=== PATIENT | male | born 1945 | race Caucasian/White ===

== ENCOUNTER 2020-01-23 09:30 | Outpatient (CLI) | payer MEDICARE, BC ==
--- NOTE | 2020-01-23 12:05 | ULT ---
ULTRASOUND ABDOMINAL AORTA: Date: 01/23/2020 HISTORY: Wellness exam. Screening for abdominal aortic aneurysm. COMPARISON: 01/05/2017. FINDINGS: The abdominal aortic measurements are as follows: Proximal: 1.8 x 2.7 x 2.4 cm Mid: 1.7 x 2.3 x 1.6 cm Distal: 2.7 (AP) x 3.3 (transverse) x 2.6 (CC) cm The right common iliac artery measures 1.3 x 0.9 cm. The left common iliac artery measures 1.0 x 0.8 cm. 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 POS: OFF
== END 2020-01-23 09:31 | disposition home or self-care (01) ==
LOC: BICULT 09:30
PROVIDERS: ATTEND Family Medicine
DX: Z00.00 Encounter for general adult medical examination without abnormal findings (principal); Z13.6 Encounter for screening for cardiovascular disorders
CPT/HCPCS: 76775

== ENCOUNTER 2021-12-02 09:59 | Outpatient (CLI) | payer MEDICARE, BC ==
[2021-12-02 11:55] LABS: #Eosinphils 0.1 10x3/uL (0.0-0.5); #Monocytes 0.7 10x3/uL (0.0-1.1); #Neutrophils 6.8 10x3/uL (1.5-8.4); %Basophils 0.3 % (0.0-2.0); %Eosinophils 1.3 % (0.0-6.0); %Monocytes 7.2 % (0.0-10.0); %Neutrophils 71.8 % (40.0-75.0); Hemoglobin 15.2 g/dL (13.5-17.5); Mean Corpuscular HGB CONC 34.2 g/dL (32.0-36.0); Mean Corpuscular Hemoglobin 31.7 pg (27.0-33.0); Mean Corpuscular Volume 92.7 fl (81.2-95.1); Mean Platelet Volume 9.3 fl (7.4-10.4); Platelet Count 220 10x3/uL (150-450); RBC Distribution Width 13.1 % (11.5-14.5); Red Blood Cell (RBC) Count 4.79 10x6/uL (4.32-5.72); White Blood Cell (WBC) Count 9.4 10x3/uL (3.5-10.5)
[2021-12-02 11:59] LABS: Prothrombin Time 10.9 sec (9.5-12.1)
[2021-12-02 12:04] LABS: Anion Gap 15 mmol/L (10-20); BUN (Urea Nitrogen) 15 mg/dL (8.4-25.7); Calc. Creatinine Clearance 0 mL/min (70-130); Calcium 8.7 mg/dL (7.8-10.44); Carbon Dioxide 22 mmol/L (23-31); Chloride 107 mmol/L (98-107); Glucose 104 mg/dL (83-110); Potassium 4.6 mmol/L (3.5-5.1); Sodium 139 mmol/L (136-145)
[2021-12-02 20:43] LABS: SARS-CoV-2 PCR by NAA Not Detected (NotDetected)
== END 2021-12-02 10:00 | disposition home or self-care (01) ==
LOC: LABBT 09:59
PROVIDERS: ATTEND Orthopaedic Surgery
DX: Z01.818 Encounter for other preprocedural examination (principal); M17.11 Unilateral primary osteoarthritis, right knee; Z20.822 Contact with and (suspected) exposure to COVID-19
CPT/HCPCS: 80048; 85025; 85610; 87081; 93005; U0003; U0005; 93010

== ENCOUNTER 2021-12-02 10:00 | Inpatient (IN) | payer MEDICARE, BC ==
[2021-12-07] MEDS ORDERED: Tranexamic Acid 1,000 MG/10 ML VIAL ONE ×2 (06:11→09:27)
[2021-12-07] MEDS ORDERED: Sodium Chloride 0.9% 100 ML ONE (06:11)
[2021-12-07] MEDS ORDERED: Vancomycin 1.5 GRAM/300 ML BAG 1.5 GM in Premix Bag 1 BAG IVPB SCH ×2 (06:15→19:15)
[2021-12-07] MEDS ORDERED: Bupivacaine PF 0.5% 30 ML VIAL ONE (06:35)
[2021-12-07] MEDS ORDERED: Fentanyl 100 MCG/2 ML VIAL ONE ×5 (06:48→10:16)
[2021-12-07] MEDS ORDERED: Midazolam HCl 2 mg/2 ml Vial ONE (07:05)
[2021-12-07] MEDS ORDERED: Sodium Chloride 0.9% 10 ML ONE (07:05)
[2021-12-07] MEDS ORDERED: methylPREDNISolone Acetate 40 mg/ml Vial ONE (07:12)
[2021-12-07] MEDS ORDERED: Lidocaine 1% (PF) 30 ML VIAL ONE (07:13)
[2021-12-07] MEDS ORDERED: Bupivacaine 0.25% 10 ML VIAL ONE (07:15)
[2021-12-07] MEDS ORDERED: EPINEPHrine 1 MG/ML AMP ONE (07:15)
[2021-12-07] MEDS ORDERED: ceFAZolin 2 GM/DEX 5% 100 ML BAG ONE (07:21)
[2021-12-07] MEDS ORDERED: cefOXitin Sodium/Dextrose 2 GM/50 ML BAG ONE (07:21)
[2021-12-07] MEDS ORDERED: ceFAZolin 2 GM/Dextrose 50 ML IVPB ONE (07:21)
[2021-12-07] MEDS ORDERED: ePHEDrine 50 MG/ML VIAL ONE (07:30)
[2021-12-07] MEDS ORDERED: PROPOFOL 200 MG/20 ML VIAL ONE (07:30)
[2021-12-07] MEDS ORDERED: Lidocaine 1% PF 5 ML VIAL ONE (07:30)
[2021-12-07] MEDS ORDERED: Bupivacaine HCl 0.5%/Epinephrine 1:200,000/PF 30 ml Vial ONE (07:30)
[2021-12-07] MEDS ORDERED: Glycopyrrolate 0.2 MG/ML 5 ML SYRINGE ONE (07:30)
[2021-12-07] MEDS ORDERED: Ondansetron PF 4 MG/2 ML Vial ONE (07:30)
[2021-12-07] MEDS ORDERED: PHENYLEPHRINE-NS 100 MCG/ML 10 ML SYRINGE ONE (07:30)
[2021-12-07] MEDS ORDERED: Fentanyl 100 MCG/2 ML VIAL IV PRN (07:47)
[2021-12-07] MEDS ORDERED: Promethazine HCl 25 MG/ML VIAL IM PRN ×3 (08:00→15:06)
[2021-12-07] MEDS ORDERED: traMADol HCl 50 MG TAB PO PRN (08:00)
[2021-12-07] MEDS ORDERED: HYDROcodone/Acetaminophen 10/325 mg Tablet PO PRN ×2 (08:00)
[2021-12-07] MEDS ORDERED: Ropivacaine 0.2% 550 ML 550 ML NERVE BLCK SCH (08:00)
[2021-12-07] MEDS ORDERED: Ondansetron PF 4 MG/2 ML Vial IVP PRN ×2 (08:00→15:06)
[2021-12-07] MEDS ORDERED: Zolpidem Tartrate 5 MG TAB PO PRN ×2 (08:00→15:06)
[2021-12-07] MEDS ORDERED: Ondansetron HCl/PF 4 MG/2 ML Vial IVP PRN (09:21)
[2021-12-07] MEDS ORDERED: Promethazine HCl 25 MG/ML VIAL IVPB PRN (09:21)
[2021-12-07] MEDS ORDERED: hydrALAZINE 20 MG/ML VIAL ONE (10:03)
[2021-12-07] MEDS ORDERED: Ketorolac Tromethamine 30 MG/ML VIAL ONE (10:16)
[2021-12-07] MEDS ORDERED: diphenhydrAMINE 25 MG CAP PO PRN (15:06)
[2021-12-07] MEDS ORDERED: Acetaminophen 325 MG TAB PO PRN (15:06)
[2021-12-07 15:10] VITALS: BMI 25.8
[2021-12-07] MEDS ORDERED: Senokot S 8.6-50 MG TAB PO SCH (16:15)
[2021-12-07] MEDS ORDERED: Aspirin 81 mg Enteric Coated Tablet PO SCH (16:15)
[2021-12-07] MEDS ORDERED: Ferrous Gluconate 324 MG TAB PO SCH (16:15)
[2021-12-07] MEDS ORDERED: Multivitamin W/ Minerals 1 TAB PO SCH (16:15)
[2021-12-07] MEDS: Ketorolac Tromethamine 30 MG/ML VIAL IVP SCH ×3 (16:50→22:20)
[2021-12-07] MEDS: Sodium Chloride 0.9% 1,000 ML IV SCH ×2 (16:51→17:29)
[2021-12-07] MEDS: ceFAZolin 2 GM/Dextrose 50 ML 2 GM in Premix Bag 1 BAG IVPB SCH (17:29)
[2021-12-07] MEDS: Ferrous Gluconate 324 MG TAB PO SCH (22:18)
[2021-12-07] MEDS: Senokot S 8.6-50 MG TAB PO SCH (22:19)
[2021-12-07] MEDS: Aspirin 81 mg Enteric Coated Tablet PO SCH (22:19)
[2021-12-08] MEDS: ceFAZolin 2 GM/Dextrose 50 ML 2 GM in Premix Bag 1 BAG IVPB SCH (00:32)
[2021-12-08] MEDS: Ketorolac Tromethamine 30 MG/ML VIAL IVP SCH ×3 (05:40→18:15)
[2021-12-08 08:43] LABS: Mean Corpuscular HGB CONC 32.8 g/dL (32.0-36.0); Mean Corpuscular Hemoglobin 32.3 pg (27.0-31.0); Mean Corpuscular Volume 98.6 fL (78.0-98.0); Mean Platelet Volume 6.9 fL (7.4-10.4); Platelet Count 202 thou/uL (130-400); RBC Distribution Width 12.3 % (11.5-14.5); Red Blood Cell (RBC) Count 4.34 mill/uL (4.70-6.10); White Blood Cell (WBC) Count 13.3 thou/uL (4.8-10.8)
[2021-12-08] MEDS: Senokot S 8.6-50 MG TAB PO SCH ×2 (09:31→22:41)
[2021-12-08] MEDS: Aspirin 81 mg Enteric Coated Tablet PO SCH ×2 (09:32→22:41)
[2021-12-08] MEDS: traMADol HCl 50 MG TAB PO PRN ×2 (09:32→15:53)
[2021-12-08] MEDS: Multivitamin W/ Minerals 1 TAB PO SCH (09:32)
[2021-12-08] MEDS: Ferrous Gluconate 324 MG TAB PO SCH ×2 (09:32→22:41)
[2021-12-08] MEDS: Sodium Chloride 0.9% 1,000 ML IV SCH (11:43)
[2021-12-08] MEDS ORDERED: SILDENAFIL CITRATE 50 MG PO PRN (12:45)
[2021-12-08] MEDS ORDERED: Amlodipine 5 MG TAB PO SCH (17:45)
[2021-12-08] MEDS: Vit A,C & E/Lutein/Minerals Tablet PO SCH (22:41)
[2021-12-08] MEDS: Carvedilol 25 MG TAB PO SCH (22:46)
[2021-12-09] MEDS: Sodium Chloride 0.9% 1,000 ML IV SCH (00:52)
[2021-12-09] MEDS: Ketorolac Tromethamine 30 MG/ML VIAL IVP SCH ×2 (00:55→06:05)
[2021-12-09 05:23] LABS: Mean Corpuscular HGB CONC 33.1 g/dL (32.0-36.0); Mean Corpuscular Hemoglobin 32.3 pg (27.0-31.0); Mean Corpuscular Volume 97.5 fL (78.0-98.0); Platelet Count 164 thou/uL (130-400); RBC Distribution Width 12.2 % (11.5-14.5); Red Blood Cell (RBC) Count 3.71 mill/uL (4.70-6.10); White Blood Cell (WBC) Count 10.8 thou/uL (4.8-10.8)
[2021-12-09] MEDS: Ferrous Gluconate 324 MG TAB PO SCH (08:27)
[2021-12-09] MEDS: Carvedilol 25 MG TAB PO SCH (08:27)
[2021-12-09] MEDS: Aspirin 81 mg Enteric Coated Tablet PO SCH (08:27)
[2021-12-09] MEDS: Senokot S 8.6-50 MG TAB PO SCH (08:27)
[2021-12-09] MEDS: Vit A,C & E/Lutein/Minerals Tablet PO SCH (08:27)
[2021-12-09] MEDS: traMADol HCl 50 MG TAB PO PRN (08:28)
[2021-12-09] MEDS: Multivitamin W/ Minerals 1 TAB PO SCH (08:28)
[2021-12-09] MEDS ORDERED: Atorvastatin Calcium 10 MG TAB PO SCH (09:00)
[2021-12-09] MEDS ORDERED: Amlodipine 5 MG TAB PO SCH (11:00)
[2021-12-09 12:11] VITALS: TEMP 98.1
[2021-12-09 12:13] VITALS: BP 190/81
== END 2021-12-09 14:45 | disposition home health service (06) | DRG 470 ==
LOC: SURG A 12-07 05:35 → EDSTATUS 12-07 10:00 → SURG B 12-07 15:15
PROVIDERS: ADMIT Orthopaedic Surgery; ATTEND Orthopaedic Surgery
PROC: 0SRC0J9 Replacement of Right Knee Joint with Synthetic Substitute, Cemented, Open Approach (ICD-10-PCS; principal; 2021-12-07)
PROC: 3E0U33Z Introduction of Anti-inflammatory into Joints, Percutaneous Approach (ICD-10-PCS; 2021-12-07)
PROC: 3E0U3BZ Introduction of Anesthetic Agent into Joints, Percutaneous Approach (ICD-10-PCS; 2021-12-07)
DX: M17.0 Bilateral primary osteoarthritis of knee (principal); Z20.822 Contact with and (suspected) exposure to COVID-19; E78.5 Hyperlipidemia, unspecified; K22.70 Barrett's esophagus without dysplasia; J30.2 Other seasonal allergic rhinitis; E66.9 Obesity, unspecified; Z87.891 Personal history of nicotine dependence; I25.2 Old myocardial infarction; Z95.1 Presence of aortocoronary bypass graft; Z68.28 Body mass index [BMI] 28.0-28.9, adult; Z79.899 Other long term (current) drug therapy
CPT/HCPCS: 36415; 85027; A4306; C1713; C1776; J0171; J0360; J0690; J0694; J1885; J2001; J2250; J2405; J2704; J2795; J2920; J3010; J3370; J3490; J7050; S0020

== ENCOUNTER 2023-02-08 12:52 | Outpatient (CLI) | payer MEDICARE, BC ==
[2023-02-08 14:13] LABS: #Eosinphils 0.1 10x3/uL (0.0-0.5); #Monocytes 0.6 10x3/uL (0.0-1.1); #Neutrophils 6.4 10x3/uL (1.5-8.4); %Basophils 0.3 % (0.0-2.0); %Lymphocytes 22.4 % (18.0-47.0); %Monocytes 6.1 % (0.0-10.0); %Neutrophils 69.8 % (40.0-75.0); Hemoglobin 14.7 g/dL (13.5-17.5); Mean Corpuscular HGB CONC 32.7 g/dL (32.0-36.0); Mean Corpuscular Hemoglobin 31.4 pg (27.0-33.0); Mean Corpuscular Volume 95.9 fl (81.2-95.1); Mean Platelet Volume 9.4 fl (7.4-10.4); Platelet Count 231 10x3/uL (150-450); RBC Distribution Width 13.1 % (11.5-14.5); Red Blood Cell (RBC) Count 4.68 10x6/uL (4.32-5.72); White Blood Cell (WBC) Count 9.2 10x3/uL (3.5-10.5)
[2023-02-08 14:26] LABS: INR-International Normal Ratio 0.9; Prothrombin Time 10.2 sec (9.5-12.1)
[2023-02-08 15:25] LABS: Anion Gap 16 mmol/L (10-20); BUN (Urea Nitrogen) 20 mg/dL (8.4-25.7); Calc. Creatinine Clearance 0 mL/min (70-130); Calcium 8.9 mg/dL (7.8-10.44); Carbon Dioxide 20 mmol/L (23-31); Chloride 109 mmol/L (98-107); Estimated GFR 88; Glucose 103 mg/dL (83-110); Potassium 4.5 mmol/L (3.5-5.1); Sodium 140 mmol/L (136-145)
== END 2023-02-08 12:53 | disposition home or self-care (01) ==
LOC: LABBT 12:52
PROVIDERS: ATTEND Orthopaedic Surgery
DX: Z01.818 Encounter for other preprocedural examination (principal); M17.12 Unilateral primary osteoarthritis, left knee
CPT/HCPCS: 80048; 85025; 85610; 87081; 93005; 93010

== ENCOUNTER 2023-12-12 06:13 | Day surgery (SDC) | payer MEDICARE, BC ==
[2023-12-04 10:41] VITALS: BMI 31.7
[2023-12-12] MEDS ORDERED: LevoFLOXacin D5W 500 mg (100 mL) BAG ONE (06:24)
[2023-12-12] MEDS ORDERED: Sodium Chloride 0.9% 100 ML ONE (06:25)
[2023-12-12] MEDS ORDERED: cefTRIAXone (ROCEPHIN) 2 GM VIAL ONE (06:25)
[2023-12-12] MEDS ORDERED: fentaNYL 50 mcg/mL 1 mL Vial ONE (06:49)
[2023-12-12] MEDS ORDERED: PROPOFOL 20 ML ONE (06:49)
[2023-12-12] MEDS ORDERED: ePHEDrine Sulfate 50 MG/10 ML VIAL ONE (07:44)
[2023-12-12] MEDS ORDERED: Ondansetron PF 4 MG/2 ML Vial ONE (07:49)
[2023-12-12] MEDS ORDERED: Phenazopyridine HCl 100 MG TAB ONE (08:41)
[2023-12-12] MEDS ORDERED: Oxybutynin 5 MG TAB ONE (08:41)
[2023-12-12] MEDS ORDERED: Tamsulosin HCl 0.4 MG CAP ONE (08:53)
== END 2023-12-12 11:00 | disposition home or self-care (01) ==
LOC: SDC 06:13
PROVIDERS: ATTEND Urology
PROC: 0TJB8ZZ Inspection of Bladder, Via Natural or Artificial Opening Endoscopic (ICD-10-PCS; principal; 2023-12-12)
PROC: 0VB03ZX Excision of Prostate, Percutaneous Approach, Diagnostic (ICD-10-PCS; 2023-12-12)
DX: C61 Malignant neoplasm of prostate (principal); N40.0 Benign prostatic hyperplasia without lower urinary tract symptoms
CPT/HCPCS: 55700; J3010; C1747; G0416; J0696; J1956; J2405; J2704; J3490

== ENCOUNTER 2024-02-21 14:02 | Outpatient (CLI) | payer MEDICARE | END 2024-02-21 14:03 | disposition home or self-care (01) | LOC: BICMAMMO 14:02 | PROVIDERS: ATTEND Internal Medicine Hematology & Oncology | DX: Z13.820 Encounter for screening for osteoporosis (principal); Z79.818 Long term (current) use of other agents affecting estrogen receptors and estrogen levels | CPT/HCPCS: 77080 ==

== ENCOUNTER 2024-05-19 16:12 | Inpatient (IN) | payer MEDICARE ==
[2024-05-19] MEDS ORDERED: HYDROcodone/Acetaminophen 5/325 mg Tablet ONE (19:38)
[2024-05-19] MEDS ORDERED: TETANUS, DIPHTHERIA TOX,ADULT (TDVAX) 0.5 ML VIAL IM ONE (20:34)
[2024-05-19] MEDS ORDERED: Glucagon 1 MG/ML KIT IM PRN (20:34)
[2024-05-19] MEDS ORDERED: Dextrose 50% Abboject 50 ML SYRINGE SLOW IVP PRN (20:34)
[2024-05-19] MEDS ORDERED: Dextrose 5% in Water 1,000 ML IV PRN (20:34)
[2024-05-19] MEDS ORDERED: Promethazine HCl 25 MG/ML VIAL IM PRN (20:35)
[2024-05-19] MEDS ORDERED: Ondansetron PF 4 MG/2 ML Vial IVP PRN (20:35)
[2024-05-19] MEDS ORDERED: Losartan 25 MG TAB ONE (20:37)
[2024-05-19] MEDS ORDERED: Carvedilol 6.25 MG TAB ONE (20:37)
[2024-05-19] MEDS ORDERED: Rib Fracture Protocol PO SCH (20:45)
[2024-05-19 20:47] LABS: #Basophils 0.03 10x3/uL (0.0-0.2); %Basophils 0.3 % (0.0-1.0); %Eosinophils 1.4 % (0.0-10.0); %Monocytes 5.9 % (0.0-10.0); %Neutrophils 78.5 % (42.0-75.0); Hemoglobin 13.5 g/dL (14.0-18.0); Mean Corpuscular HGB CONC 32.9 g/dL (32.0-36.0); Mean Corpuscular Hemoglobin 33.8 pg (27.0-31.0); Mean Corpuscular Volume 102.8 fL (78.0-98.0); Mean Platelet Volume 8.7 fL (7.4-10.4); Platelet Count 226 10x3/uL (130-400); RBC Distribution Width 13.5 % (11.5-14.5); Red Blood Cell (RBC) Count 3.99 mill/uL (4.70-6.10)
[2024-05-19] MEDS ORDERED: Cyclobenzaprine 10 MG TAB PO PRN (21:00)
[2024-05-19 21:06] LABS: ALT (SGPT) 21 U/L (8-55); AST (SGOT) 16 U/L (5-34); Albumin 3.8 g/dL (3.4-4.8); Alkaline Phosphatase 90 U/L (40-110); Anion Gap 19 mmol/L (10-20); BUN (Urea Nitrogen) 22 mg/dL (8.4-25.7); Bilirubin, Total 0.8 mg/dL (0.2-1.2); Calc. Creatinine Clearance 0 mL/min (70-130); Calcium 9.6 mg/dL (7.8-10.44); Carbon Dioxide 22 mmol/L (23-31); Chloride 104 mmol/L (98-107); Estimated GFR 77; Globulin 2.9 g/dL (2.4-3.5); Glucose 114 mg/dL (83-110); Protein, Total 6.7 g/dL (5.8-8.1); Sodium 141 mmol/L (136-145)
[2024-05-19 21:10] LABS: Troponin I Less than 0.010 ng/mL (< 0.028)
[2024-05-19 23:29] VITALS: BMI 32.5
[2024-05-20] MEDS: Atorvastatin Calcium 10 MG TAB PO SCH (00:25)
[2024-05-20] MEDS: Carvedilol 6.25 MG TAB PO SCH (00:25)
[2024-05-20] MEDS: Gabapentin 100 MG CAP PO SCH (00:26)
[2024-05-20] MEDS: Losartan 25 MG TAB PO SCH (00:26)
[2024-05-20] MEDS: Famotidine 20 MG TAB PO SCH (00:26)
[2024-05-20] MEDS: Ibuprofen 200 MG TAB PO SCH (00:27)
[2024-05-20] MEDS: Tamsulosin HCl 0.4 MG CAP PO SCH (00:27)
[2024-05-20] MEDS: Acetaminophen 500 MG TAB PO SCH (00:48)
[2024-05-20] MEDS: traMADol HCl 50 MG TAB PO SCH (00:49)
[2024-05-20 05:36] LABS: #Basophils Less than 0.03 10x3/uL (0.0-0.2); %Basophils 0.3 % (0.0-1.0); %Eosinophils 2.2 % (0.0-10.0); %Lymphocytes 12.2 % (21.0-51.0); %Monocytes 8.1 % (0.0-10.0); %Neutrophils 76.5 % (42.0-75.0); Hematocrit 36.5 % (42.0-52.0); Mean Corpuscular HGB CONC 32.9 g/dL (32.0-36.0); Mean Corpuscular Hemoglobin 33.2 pg (27.0-31.0); Mean Corpuscular Volume 101.1 fL (78.0-98.0); Platelet Count 178 10x3/uL (130-400); RBC Distribution Width 13.5 % (11.5-14.5); Red Blood Cell (RBC) Count 3.61 mill/uL (4.70-6.10)
[2024-05-20 05:53] LABS: Phosphorus 3.7 mg/dL (2.3-4.7)
[2024-05-20 05:56] LABS: Anion Gap 18 mmol/L (10-20); BUN (Urea Nitrogen) 22 mg/dL (8.4-25.7); Calc. Creatinine Clearance 105 mL/min (70-130); Calcium 8.9 mg/dL (7.8-10.44); Carbon Dioxide 23 mmol/L (23-31); Chloride 107 mmol/L (98-107); Estimated GFR 90; Glucose 94 mg/dL (83-110); Magnesium 1.8 mg/dL (1.6-2.6); Potassium 3.6 mmol/L (3.5-5.1); Sodium 144 mmol/L (136-145)
[2024-05-20] MEDS: Budesonide 0.5 MG/2 ML NEB INH SCH (06:27)
[2024-05-20] MEDS: Ipratropium/Albuterol 3 ML NEB NEB SCH (06:31)
[2024-05-20] MEDS: Aspirin 81 mg Enteric Coated Tablet PO SCH (10:12)
[2024-05-20] MEDS: predniSONE 5 MG TAB PO SCH (10:13)
[2024-05-20 12:32] VITALS: TEMP 97.7
[2024-05-20 17:47] VITALS: BP 164/76
== END 2024-05-20 18:55 | disposition home or self-care (01) | DRG 184 ==
LOC: ERS 16:12 → ERHOLD 20:34 → SURG B 22:56 → OBSVTOIN 05-20 17:10
PROVIDERS: ADMIT Family Medicine; ATTEND Family Medicine
DX: S22.41XA Multiple fractures of ribs, right side, initial encounter for closed fracture (principal); M31.30 Wegener's granulomatosis without renal involvement; G89.11 Acute pain due to trauma; C61 Malignant neoplasm of prostate; E78.5 Hyperlipidemia, unspecified; Z95.1 Presence of aortocoronary bypass graft; Z96.653 Presence of artificial knee joint, bilateral; Z90.89 Acquired absence of other organs; Z87.891 Personal history of nicotine dependence; W19.XXXA Unspecified fall, initial encounter
CPT/HCPCS: 36415; 71045; 71250; 80048; 80053; 83735; 84100; 84484; 85025; 93005; 94640; G0378; J7512; J7620; J7626

== ENCOUNTER 2024-05-28 10:34 | Outpatient (CLI) | payer MEDICARE | END 2024-05-28 10:35 | disposition home or self-care (01) | LOC: RAD 10:34 | PROVIDERS: ATTEND Surgery | DX: S22.41XA Multiple fractures of ribs, right side, initial encounter for closed fracture (principal) | CPT/HCPCS: 71046 ==

== ENCOUNTER 2024-10-29 13:50 | Outpatient (CLI) | payer MEDICARE | END 2024-10-29 13:51 | disposition home or self-care (01) | LOC: BICCT 13:50 | PROVIDERS: ATTEND Urology | DX: C61 Malignant neoplasm of prostate (principal); R97.20 Elevated prostate specific antigen [PSA]; N52.9 Male erectile dysfunction, unspecified; N40.1 Benign prostatic hyperplasia with lower urinary tract symptoms; N13.8 Other obstructive and reflux uropathy; I71.40 Abdominal aortic aneurysm, without rupture, unspecified; D73.89 Other diseases of spleen; K76.89 Other specified diseases of liver; N28.1 Cyst of kidney, acquired; N20.0 Calculus of kidney; I72.3 Aneurysm of iliac artery | CPT/HCPCS: 36415; 74178; 82565 ==